=== PATIENT | male | born 1955 | race Caucasian/White ===

== ENCOUNTER 2017-11-20 17:55 | Emergency (ER) | payer OTHER ==
[~2017-11-20] VITALS: Ht 175.3 cm; Wt 78.2 kg
[~2017-11-20 17:55] MED LIST: CRESTOR PO
[2017-11-20 18:00] VITALS: BP 143/70; PULSE 100; TEMP 99.4
[2017-11-20] MEDS ORDERED: NORCO 325 MG-51 TAB PO (19:12)
== END 2017-11-20 19:26 | disposition home or self-care (01) ==
LOC: COL.ER 17:55
DX: S46.912A Strain of unspecified muscle, fascia and tendon at shoulder and upper arm level, left arm, initial encounter (principal); E78.5 Hyperlipidemia, unspecified; Z87.891 Personal history of nicotine dependence; Z98.890 Other specified postprocedural states; Z85.46 Personal history of malignant neoplasm of prostate; W01.0XXA Fall on same level from slipping, tripping and stumbling without subsequent striking against object, initial encounter

== ENCOUNTER → 2017-12-07 | Outpatient (CLI) | payer OTHER ==
[~2017-12-07] MED LIST changes: +NORCO 325 MG-51 TAB PO
== END ==
LOC: COL.RAD 12:09
DX: S46.812A Strain of other muscles, fascia and tendons at shoulder and upper arm level, left arm, initial encounter (principal)

== ENCOUNTER 2020-03-27 06:50 | Day surgery (SDC) | payer OTHER ==
[~2020-03-27] VITALS: Ht 167.6 cm; Wt 82.7 kg
[2020-03-27] MEDS ORDERED: ZOCOR 40MG40 MG PO (07:37)
[2020-03-27 07:38] VITALS: BP 149/82; PULSE 79; TEMP 98.2
[2020-03-27 12:30] VITALS: BP 130/78; PULSE 80; TEMP 98.1
--- NOTE | 2020-03-27 12:30 | NUR ---
The patient arrived back to [place] [facility] from the recovery room at this time. The patient appears alert and oriented and denies any pain or nausea at this time. The patient does report feeling cold and has been given some extra warm blankets at this time. Post operative vital signs were started at this time. The patient denies wanting anything to eat or drink at this time. The patient has three lap sites to his abdomen that are without redness or edema covered with surgical glue. Call light is within reach. Will continue to monitor the patient.
[2020-03-27 12:45] VITALS: BP 128/64; PULSE 71
--- NOTE | 2020-03-27 12:45 | NUR ---
The patient appears to be resting quielty on the cart at this time. Respirations even and unlabored. Call light is within reach. Will continue to monitor [facility] patient.
[2020-03-27 13:00] VITALS: BP 130/78; PULSE 80; TEMP 98.1
--- NOTE | 2020-03-27 13:00 | NUR ---
The patient appears to be resting quietly with his eyes closed at this time. Respirations even and unlabored. Call light remains within reach. Will conitnue to monitor the patient.
[2020-03-27 13:15] VITALS: BP 130/72; PULSE 78
--- NOTE | 2020-03-27 13:15 | NUR ---
The patient appears more alert and agrees to try some cranberry juice at this time. The patient denies wanting anything to eat at this time. Call light is within reach. Will continue to monitor the patient.
[2020-03-27] MEDS ORDERED: ULTRAM 50MG TAB50 MG PO (13:32)
[2020-03-27 13:45] VITALS: BP 128/77; PULSE 92
--- NOTE | 2020-03-27 13:45 | NUR ---
The patient appears to be tolerating the juice well and requests to try a little more at this time. Vital signs appear stable. Call light is within reach. Will continue to monitor the patient.
--- NOTE | 2020-03-27 14:00 | NUR ---
The patient ambulated to the bathroom with the stand by assistane of one nurse and appeared to tolerate the activity well. The nurse instructed the patient that if he is able to void that he can get dressed and notify the staff when he is ready to review his discharge instructions.
--- NOTE | 2020-03-27 14:10 | NUR ---
Discharge instructions were reviewed with the patient at this time. He verbalized understanding and has no questions for the nurse at this time. The patient's IV to his right hand was removed and a pressure dressing was applied to the site. The patient is dressed and ready to be escorted out.
--- NOTE | 2020-03-27 14:20 | NUR ---
The patient was escorted out via wheelchair to a private vehicle by ABBI [place]. The patient's belongings and discharge paperwork were sent with him. The patient's is present to drive him home.
== END 2020-03-27 14:20 | disposition home or self-care (01) ==
LOC: SDCO 06:50
DX: K40.20 Bilateral inguinal hernia, without obstruction or gangrene, not specified as recurrent (principal); Z85.46 Personal history of malignant neoplasm of prostate; Z90.79 Acquired absence of other genital organ(s); Z92.3 Personal history of irradiation; E78.5 Hyperlipidemia, unspecified; Z87.891 Personal history of nicotine dependence
CPT/HCPCS: A4314; C1781; J0690; J1100; J1170; J1885; J2704; J3010; J7120